=== PATIENT | male | born 1940 | race Caucasian/White ===

== ENCOUNTER → 2018-12-01 | Outpatient (REF) | payer MEDICARE, OTHER ==
[~2018-12-01] MED LIST: ASPI81TA90 PO; BISO5TAB5 PO; CENTTAB47 PO; COQ-100C PO; DILA100C PO; DIOVAN PO; FISH1000 PO; KEPP500T4 PO; PHEN100VL IV; PICC LINE FLUSHES IV; SALI0.9I2 IV; SPIR25TA2 PO; TYLE325T5 PO; VANC1ADVIV INJ; VITA200016 PO
== END ==
LOC: M SFHCADAM 15:04
PROVIDERS: ATTEND Family Medicine
DX: R41.3 Other amnesia (principal); I10 Essential (primary) hypertension; E78.2 Mixed hyperlipidemia; Z53.8 Procedure and treatment not carried out for other reasons

== ENCOUNTER → 2018-12-22 | Outpatient (REF) | payer MEDICARE, OTHER ==
[2018-12-22 19:33] LABS: HEMATOCRIT 48.3 % (42.0-52.0); HEMOGLOBIN 15.4 g/dl (13.5-17.5); MEAN CORPUSCULAR HEMOGLOBIN 28.8 pg (27.0-33.0); MEAN CORPUSCULAR HGB CONC 31.9 g/dl (32.0-36.5); MEAN CORPUSCULAR VOLUME 90.3 fl (80.0-96.0); PLATELET COUNT, AUTOMATED 180 10^3/uL (150-450); RED BLOOD COUNT 5.35 10^6/uL (4.30-6.10); WHITE BLOOD COUNT 6.3 10^3/uL (4.0-10.0)
[2018-12-22 20:15] LABS: ALBUMIN 3.7 GM/DL (3.2-5.2); ALT/SGPT 28 U/L (12-78); BILIRUBIN,TOTAL 1.9 MG/DL (0.2-1.0); BLOOD UREA NITROGEN 16 MG/DL (7-18); CALCIUM LEVEL 8.7 MG/DL (8.8-10.2); CARBON DIOXIDE LEVEL 32 MEQ/L (21-32); CHLORIDE LEVEL 103 MEQ/L (98-107); CHOLESTEROL LEVEL 218 MG/DL (<200); CHOLESTEROL RISK RATIO 3.758 (<5); CREATININE FOR GFR 0.89 MG/DL (0.70-1.30); FREE T4 0.94 NG/DL (0.76-1.46); GLOMERULAR FILTRATION RATE > 60.0 (>42); GLUCOSE, FASTING 138 MG/DL (70-100); HDL CHOLESTEROL 58 MG/DL (>40); LDL CHOLESTEROL 85 MG/DL (<100); NON-HDL-C 160 MG/DL; POTASSIUM SERUM 4.1 MEQ/L (3.5-5.1); SODIUM LEVEL 142 MEQ/L (136-145); TOTAL PROTEIN 6.7 GM/DL (6.4-8.2); TRIGLYCERIDES LEVEL 374 MG/DL (<150)
[2018-12-22 20:22] LABS: HEMOGLOBIN A1c 5.8 %
[2018-12-23 09:02] LABS: VITAMIN B12 LEVEL 497 PG/ML (247-911)
== END ==
LOC: M SFHCADAM 14:58
PROVIDERS: ATTEND Family Medicine
DX: R41.3 Other amnesia (principal); I10 Essential (primary) hypertension; E78.2 Mixed hyperlipidemia

== ENCOUNTER 2019-01-04 13:54 | Outpatient (RCR) | payer MEDICARE, BC, OTHER | END 2019-01-24 | LOC: M PT 13:54 | PROVIDERS: ATTEND Family Medicine | DX: R26.89 Other abnormalities of gait and mobility (principal) ==

== ENCOUNTER 2019-05-06 10:53 | Day surgery (SDC) | payer MEDICARE, BC, OTHER ==
[~2019-05-06] VITALS: Ht 170.2 cm; Wt 97.7 kg
[~2019-05-06 10:53] MED LIST changes: +ASPI81TA26 PO; +BALANCED SALT IRRIGATION SOLUTION 500ML BAG (FOR OR EYE MACHINE) As Ordered ONE; +BISO5TAB5; +CEFUROXIME 1MG/0.1ML INTRACAMERAL INJ As Ordered ONE; +DUOVISC (0.50ML VISCOAT/0.55ML PROVISC) OPHTH KIT As Ordered ONE; +KEPP1TAB PO; +LIDOCAINE 0.75%/EPINEPHRINE 0.025% IN BSS 1ML SYR INTRACAMERAL (OR ONLY) As Ordered ONE; +MIDAZOLAM INJ 2 MG/2 ML VIAL (J2250) As Ordered ONE; +MULTCAP PO; +OFLOXACIN 0.3 % (OCUFLOX) OPTH SOL 5ML OD ONE; +PHENYLEPHRINE 2.5% OPHTH SOL 2ML OD ONE; +POVIDONE-IODINE 5% OPHTH PREP SOL 30ML As Ordered ONE; +PROPARACAINE 0.5% OPHTH SOL 15ML OD ONE; +SPIR-10 PO; +TROPICAMIDE 1% OPHTH SOLN 2ML OD ONE; +fentaNYL 100 MCG/2 ML INJECTION (J3010) As Ordered ONE
[2019-05-06] MEDS ORDERED: METOPROLOL 5 MG/5 ML VIAL As Ordered ONE (13:11)
[2019-05-06 14:20] VITALS: BP 155/85
--- NOTE | 2019-05-07 20:30 | RO ---
DATE OF PROCEDURE: 05/06/2019 PREOPERATIVE DIAGNOSIS: 1. Visually significant nuclear sclerotic cataract right eye. POSTOPERATIVE DIAGNOSIS: 1. Visually significant nuclear sclerotic cataract right eye. PROCEDURE: 1. Cataract extraction with use of phacoemulsification and placement of intraocular lens, [id number], 20.0 D, right eye. SURGEON: Nicolas Hill DO AUTOMOBILE LIGHTS ASSEMBLER: None. ANESTHESIA: Local with monitored anesthesia care (MAC). COMPLICATIONS: None. POSTOPERATIVE CONDITION: Stable. INDICATIONS FOR SURGERY: 1. Blurred vision affecting patients activities of daily living. DESCRIPTION OF PROCEDURE: The patient was seen in the preoperative area and properly identified. The correct operative eye was identified and marked. The patient received topical anesthetic, antibiotics, and topical dilating drops. The patient was then transferred to the operating room. The correct side was re-identified, and a time-out was performed. The eye was prepped and draped in a sterile fashion. The eyelids were isolated with Tegaderm tape, and the lids were held open with an adjustable speculum. A 1.0 mm paracentesis incision was made. Intraocular preservative-free Shugarcaine was then injected into the anterior chamber. Viscoelastic was then injected into the anterior chamber through the paracentesis. Using a 2.4 mm sharp-tipped keratome, the anterior chamber was entered via a temporal clear cornea incision. A continuous curvilinear capsulorrhexis was created with Utrata forceps. Hydrodissection was performed with balanced salt solution (BSS) on a blunt cannula until the nucleus was able to rotate freely. The crystalline lens was phacoemulsified and aspirated. Irrigation/aspiration was used to remove the cortical material. Cohesive viscoelastic was placed into the capsular bag to deepen it. The implant was placed into the capsular bag and allowed to unfold. Placement was confirmed by visualizing the anterior capsulorrhexis. Irrigation/aspiration was used to remove the viscoelastic. The clear corneal incision was hydrated with BSS on a blunt cannula. The lens was well positioned. The incisions were then tested for leaks and found to be negative. The eye was then palpated for appropriate pressure and adjusted accordingly with BSS. The eyelid speculum was then carefully removed. A shield was placed over the eye. The patient tolerated the procedure well and was discharged to the recovery unit in a stable condition.
== END 2019-05-06 14:30 | disposition home or self-care (01) ==
LOC: M SDC 10:53
PROVIDERS: ATTEND Ophthalmology
DX: H25.11 Age-related nuclear cataract, right eye (principal); I10 Essential (primary) hypertension; F32.9 Major depressive disorder, single episode, unspecified; Z85.46 Personal history of malignant neoplasm of prostate; Z79.82 Long term (current) use of aspirin; Z79.899 Other long term (current) drug therapy
CPT/HCPCS: 66984; J2250; J3010; V2632

== ENCOUNTER → 2019-07-05 | Outpatient (REF) | payer MEDICARE, OTHER ==
[~2019-07-05] MED LIST changes: -BALANCED SALT IRRIGATION SOLUTION 500ML BAG (FOR OR EYE MACHINE) As Ordered ONE; -BISO5TAB5; +BISO5TAB9; -CEFUROXIME 1MG/0.1ML INTRACAMERAL INJ As Ordered ONE; -DUOVISC (0.50ML VISCOAT/0.55ML PROVISC) OPHTH KIT As Ordered ONE; -LIDOCAINE 0.75%/EPINEPHRINE 0.025% IN BSS 1ML SYR INTRACAMERAL (OR ONLY) As Ordered ONE; -MIDAZOLAM INJ 2 MG/2 ML VIAL (J2250) As Ordered ONE; -OFLOXACIN 0.3 % (OCUFLOX) OPTH SOL 5ML OD ONE; -PHENYLEPHRINE 2.5% OPHTH SOL 2ML OD ONE; -POVIDONE-IODINE 5% OPHTH PREP SOL 30ML As Ordered ONE; -PROPARACAINE 0.5% OPHTH SOL 15ML OD ONE; -TROPICAMIDE 1% OPHTH SOLN 2ML OD ONE; -fentaNYL 100 MCG/2 ML INJECTION (J3010) As Ordered ONE
[2019-07-05 14:23] LABS: ALBUMIN 3.8 GM/DL (3.2-5.2); ALT/SGPT 34 U/L (12-78); BILIRUBIN,TOTAL 1.4 MG/DL (0.2-1.0); BLOOD UREA NITROGEN 18 MG/DL (7-18); CALCIUM LEVEL 9.6 MG/DL (8.8-10.2); CARBON DIOXIDE LEVEL 32 MEQ/L (21-32); CHLORIDE LEVEL 101 MEQ/L (98-107); CREATININE FOR GFR 1.08 MG/DL (0.70-1.30); GLOMERULAR FILTRATION RATE > 60.0 (>42); GLUCOSE, FASTING 165 MG/DL (70-100); MAGNESIUM LEVEL 2.2 MG/DL (1.8-2.4); POTASSIUM SERUM 3.8 MEQ/L (3.5-5.1); SODIUM LEVEL 142 MEQ/L (136-145); TOTAL PROTEIN 7.3 GM/DL (6.4-8.2)
== END ==
LOC: M SFHCADAM 11:04
PROVIDERS: ATTEND Family Medicine
DX: I87.2 Venous insufficiency (chronic) (peripheral) (principal)

== ENCOUNTER 2019-10-30 11:33 | Emergency (ER) | payer MEDICARE, BC, OTHER ==
[~2019-10-30] VITALS: Ht 170.2 cm; Wt 92.7 kg
[2019-10-30] MEDS ORDERED: OMEP-221 (11:46)
[2019-10-30] MEDS ORDERED: FURO40TA2 (11:46)
--- NOTE | 2019-10-30 12:33 | REP ---
CHEST X-RAY: Two views. HISTORY: Cough. History of pneumonia. COMPARISON STUDY: July 21, 2014. FINDINGS: The lungs are exposed at a poor level of inspiration. There is bibasilar plate-like atelectasis, right greater than left. Pleural angles are sharp. No definite superimposed infiltrate. Heart is not enlarged. Aorta is somewhat calcific. IMPRESSION: Low level of inspiration. Bibasilar plate-like atelectasis. No definite infiltrate. Electronically Signed by Anthony Vázquez MD 10/30/2019 01:30 P
[2019-10-30] MEDS ORDERED: DOXY100C37 PO (13:03)
[2019-10-30] MEDS ORDERED: MUCI600T31 PO (13:03)
[2019-10-30 13:10] VITALS: BP 150/76
--- NOTE | 2019-10-30 13:52 | REP ---
CT CHEST WITHOUT CONTRAST: HISTORY: Question left lower lobe pneumonia. Comparison is made with today's chest x-ray. CT FINDINGS: There are atelectatic changes in the left lower lobe, lingula, and right middle lobe as seen on the radiographs. No definite infiltrate is seen. No endobronchial disease is seen. Lungs are somewhat under aerated. The left hemidiaphragm is elevated. No pulmonary nodule or mass lesion is seen. No hilar or mediastinal mass or adenopathy is observed. Vascular calcification is seen. Normal adrenal glands are noted. There is calcific material in the gallbladder lumen consistent with cholelithiasis. Fatty infiltration of the liver is seen diffusely. IMPRESSION: Elevated left hemidiaphragm and low level of inspiration overall. Left lower lobe, lingular, and right middle lobe discoid atelectatic changes. No definite infiltrate. Fatty infiltration of the liver. Cholelithiasis. Electronically Signed by Anthony Vázquez MD 10/30/2019 04:10 P
== END 2019-10-30 13:15 | disposition home or self-care (01) ==
LOC: M ED 11:33
DX: J20.9 Acute bronchitis, unspecified (principal); I10 Essential (primary) hypertension; E87.5 Hyperkalemia; R51 Headache; R60.9 Edema, unspecified; Z87.01 Personal history of pneumonia (recurrent); Z85.46 Personal history of malignant neoplasm of prostate; Z87.891 Personal history of nicotine dependence; K80.20 Calculus of gallbladder without cholecystitis without obstruction; K76.0 Fatty (change of) liver, not elsewhere classified; Z79.82 Long term (current) use of aspirin; Z79.899 Other long term (current) drug therapy

== ENCOUNTER 2019-12-18 09:18 | Inpatient (IN) | payer MEDICARE, BC, OTHER ==
[~2019-12-18] VITALS: Ht 172.7 cm; Wt 98.3 kg
[~2019-12-18 09:18] MED LIST changes: +BISO5TAB14 PO; -BISO5TAB9; +DOXY100C37 PO; +FURO40TA2 PO; +MUCI600T31 PO; +OMEP-221 PO
[2019-12-18] MEDS ORDERED: IPRATROPIUM 0.5MG/ALBUTEROL 2.5MG INH SOL UD 3ML (DUONEB)(J7620) NEB ONE (09:45)
[2019-12-18] MEDS ORDERED: ACETAMINOPHEN TAB 650MG DOSE (2X325MG) PO ONE (09:45)
[2019-12-18] MEDS: ALBUTEROL SULFATE 2.5 MG/0.5 ML INH NEB SOLN INH PRN ×2 (09:58→10:18)
[2019-12-18 10:29] LABS: BASO % 0.3 % (0.0-1.0); EOS # 0.1 10^3/uL (0.0-0.5); EOS % 1.2 % (0.0-3.0); HEMATOCRIT 48.7 % (42.0-52.0); HEMOGLOBIN 15.5 g/dl (13.5-17.5); LYMPH # 0.5 10^3/uL (1.5-5.0); LYMPH % 7.7 % (24.0-44.0); MEAN CORPUSCULAR HEMOGLOBIN 28.4 pg (27.0-33.0); MEAN CORPUSCULAR HGB CONC 31.8 g/dl (32.0-36.5); MEAN CORPUSCULAR VOLUME 89.2 fl (80.0-96.0); MONO # 0.3 10^3/uL (0.0-0.8); MONO % 5.1 % (0.0-5.0); NEUTROPHILS # 5.6 10^3/uL (1.5-8.5); NEUTROPHILS % 85.2 % (36.0-66.0); PLATELET COUNT, AUTOMATED 158 10^3/uL (150-450); RED BLOOD COUNT 5.46 10^6/uL (4.30-6.10); WHITE BLOOD COUNT 6.5 10^3/uL (4.0-10.0)
[2019-12-18 10:42] LABS: INR 1.09; PROTHROMBIN TIME 13.8 SECONDS (11.8-14.0)
[2019-12-18 10:43] LABS: INFLUENZA A AMPLIFICATION POSITIVE (NEGATIVE); INFLUENZA B AMPLIFICATION NEGATIVE (NEGATIVE)
--- NOTE | 2019-12-18 10:43 | REP ---
Portable chest, and 10:08 a.m., single AP view with the patient sitting: Comparison is 10/30/2019. There is an incomplete inspiratory effort. This is similar to the prior study. However, the interstitium is diffusely coarsened today as an interval change. This may represent vascular engorgement or interstitial infiltrates. No pleural effusions are identified. Cardiac size is upper normal, unchanged. The yesy, mediastinum, skeletal structures are unremarkable. There is faintly visible tubing over the right side of the neck and right hemithorax, possibly a NATIONAL SALES MANAGER shunt tubing. Impression: Incomplete inspiratory effort. Interstitial coarsening compatible with vascular engorgement or interstitial infiltrates. Electronically Signed by Hayden Lees MD 12/18/2019 10:33 A
[2019-12-18 11:00] LABS: ALBUMIN 3.8 GM/DL (3.2-5.2); ALT/SGPT 41 U/L (12-78); BILIRUBIN,DIRECT 0.4 MG/DL (0.0-0.2); BILIRUBIN,TOTAL 1.7 MG/DL (0.2-1.0); BLOOD UREA NITROGEN 16 MG/DL (7-18); CALCIUM LEVEL 8.8 MG/DL (8.8-10.2); CARBON DIOXIDE LEVEL 34 MEQ/L (21-32); CHLORIDE LEVEL 102 MEQ/L (98-107); CK-MB VALUE MASS 2.5 NG/ML (<3.6); CPK CREATINE PHOSPHOKINASE 193 U/L (39-308); GLOMERULAR FILTRATION RATE > 60.0 (>35); GLUCOSE, FASTING 143 MG/DL (70-100); NT-PRO BNP 383 PG/ML (<450); SODIUM LEVEL 140 MEQ/L (136-145); THYROID STIMULATING HORMONE 0.705 uIU/ML (0.358-3.740); THYROXINE (T4) 7.6 UG/DL (4.5-12.0); TOTAL PROTEIN 7.1 GM/DL (6.4-8.2); TROPONIN I 0.06 NG/ML (< 0.10)
[2019-12-18] MEDS ORDERED: cefTRIAXone SOD 2 GM in D5W MINI-BAG PLUS 50 ML IV ONE (11:15)
[2019-12-18] MEDS ORDERED: methylPREDNISolone INJ 125 MG/2 ML VIAL (J2930) IV ONE (11:15)
[2019-12-18] MEDS ORDERED: IBUPROFEN 800 MG TAB PO ONE (11:15)
[2019-12-18] MEDS ORDERED: OSELTAMIVIR PHOSPHATE 75 MG CAP (TAMIFLU) PO ONE (12:00)
[2019-12-18] MEDS ORDERED: EQLTAB77 PO (12:24)
--- NOTE | 2019-12-18 12:37 | HPEPDOC ---
General Date of Admission Dec 18, 2019 at 12:08 Date of Service: Dec 18, 2019 Chief Complaint The patient is a 79-year-old male admitted with a reason for visit of Bronchitis Hypoxia Influenza A. Source: Patient, Family Exam Limitations: No limitations Timing/Duration: 24 hours Severity: Moderate Associated Symptoms: Cough, Fever, Chills History of Present Illness Patient 79 years old male with past history of hypertension, hyperlipidemia, normal pressure hydrocephalus follows with shunt presented hospital with fever, chills, cough. Patient stated for past 24 hours he developed fever, chills increased cough with yellowish sputum production. Also patient developed muscle ache and weakness. In emergency room patient was tested positive for influenza A. His oxygenation on the room air was 87%, he was placed on the supplemental oxygen via nasal cannula. Patient was found to have no leukocytosis, chest x-ray showed interstitial coarsening compatible with vascular engorgement or interstitial infiltrates. Home Medications Scheduled Bisoprolol Fumarate (Bisoprolol Fumarate) 5 Mg Tablet, 5 MG PO DAILY, (Reported) Furosemide (Furosemide) 40 Mg Tablet, 40 MG PO DAILY, (Reported) Multivitamin (Multivitamins) 1 Each Capsule, 1 CAP PO DAILY, (Reported) Omeprazole (Omeprazole) 40 Mg Capsule.dr, 40 MG PO DAILY, (Reported) Spironolactone (Spironolactone) 25 Mg Tablet, 25 MG PO DAILY, (Reported) Scheduled PRN D-Methorphan/PE/Acetaminophen (Cold Multi-Symptom Gelcap) 1 Each Tablet, 2 TAB PO QHS PRN for flu symptoms, (Reported) Allergies Coded Allergies: No Known Allergies (Verified , 05/06/19) Past Medical History Medical History HYPERTENSION HYPERLIPIDEMIA - DID NOT TOLERATE LIPITOR IMPAIRED FASTING GLUCOSE NPH S/P SHUNT IN [place]. HAD SHNT VALVE RESET AFTER MRI SCAN WAS DONE, READJUSTED DR LLOYD. SAW Margaret BLAKE IN [facility], HAD CT BRAIN AND SHUNT SERIES 06/10, VALLVE SET AT EITHER 1.5 OR 2.0 (NOW FOLLOWS WITH DR. 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 RODGERS 08/2006 NO PERSONAL OR FHX OF SEVERE REACTION TO ANESTHESIA PROSTATE CANCER S/P ROBOTIC PROSTATECTOMY 2005 LEFT KNEE ARTHROSCOPIC SURGERY SENIOR SOFTWARE ENGINEER ANALYTICS SHUNT FOR SUNDURAL HYGROMAS Family History FATHER: MOTHER: , DIAGNOSED WITH HEART DISEASE 1 BROTHER(S) , 2 SISTER(S) - HEALTHY. 3 SON(S) , 2 DAUGHTER(S) - HEALTHY. FATHER CIRRHOSIS OF LIVER. Social History * Smoker: former Smoker Alcohol: Denies Drugs: denies A-FIB/CHADSVASC A-FIB History Current/History of A-Fib/PAF?: No Current PO Anticoag Therapy: No Review of Systems Constitutional: Reports: Chills, Fever, Malaise Eyes: Denies: Pain, Vision change ENT: Denies: Head Aches, Ear Pain Skin: Denies: Rash Pulmonary: Reports: Dyspnea, Cough Cardiovascular: Denies: Chest Pain, Palpitations Gastrointestinal: Denies: Nausea, Vomiting Genitourinary: Denies: Dysuria, Frequency Hematologic: Denies: Bruising, Bleeding Excessively Endocrine: Denies: Polydipsia, Polyphagia Musculoskeletal: Denies: Neck Pain Neurological: Denies: Weakness, Numbness Psych: Reports: Mood Normal Physical Examination General Exam: Positive: Alert, Cooperative Eye Exam: Positive: PERRLA ENT Exam: Positive: Atraumatic, Mucous membr. moist/pink Neck Exam: Positive: Supple; Negative: JVD Chest Exam: Positive: Rales, Wheezing, Diminished Heart Exam: Positive: Rate Normal Telemetry: Positive: No significant arrhythmia Abdomen Exam: Positive: Normal bowel sounds Extremity Exam: Negative: Clubbing, Cyanosis Skin Exam: Positive: Nl turgor and temperature Neuro Exam: Positive: Strength at 5/5 X4 ext, Cranial Nerves 3-12 NL Psych Exam: Positive: Mental status NL Vital Signs Vital Signs Date Time Temp Pulse Resp B/P (MAP) Pulse Ox O2 Delivery O2 Flow Rate FiO2 12/18/19 11:15 92 24 145/65 (91) 95 Nasal Cannula 2.0 12/18/19 10:12 101.2 Laboratory Data Labs 24H Laboratory Tests 2 12/18/19 10:04: Immature Granulocyte % (Auto) 0.5, Neutrophils (%) (Auto) 85.2H, Lymphocytes (%) (Auto) 7.7L, Monocytes (%) (Auto) 5.1H, Eosinophils (%) (Auto) 1.2, Basophils (%) (Auto) 0.3, Neutrophils # (Auto) 5.6, Lymphocytes # (Auto) 0.5L, Monocytes # (Auto) 0.3, Eosinophils # (Auto) 0.1, Basophils # (Auto) 0.0, Nucleated Red Blood Cells % (auto) 0.0, Prothrombin Time 13.8, Prothromb Time International Ratio 1.09, Anion Gap 4L, Glomerular Filtration Rate > 60.0, Lactic Acid Level 1.7, Calcium Level 8.8, Total Bilirubin 1.7H, Direct Bilirubin 0.4H, Aspartate Amino Transf (AST/SGOT) 28, Alanine Aminotransferase (ALT/SGPT) 41, Alkaline Phosphatase 90, Total Creatine Kinase 193, Creatine Kinase MB 2.5, Creatine Kinase MB Relative Index 1.30, Troponin I 0.06, EW-Ere-A-Type Natriuretic Peptide 383, Total Protein 7.1, Albumin 3.8, Albumin/Globulin Ratio 1.15, Thyroid Stimulating Hormone (TSH) 0.705, Thyroxine (T4) 7.6, Influenza Type A (RT-PCR) POSITIVEH, Influenza Type B (RT-PCR) NEGATIVE CBC/BMP Laboratory Tests 12/18/19 10:04 Microbiology Microbiology 12/18/19 Blood Culture, Received Pending 12/18/19 Blood Culture, Received Pending Assessment/Plan Patient 79 years old male with past history of hypertension, hyperlipidemia, normal pressure hydrocephalus follows with shunt presented hospital with fever, chills, cough. Patient stated for past 24 hours he developed fever, chills increased cough with yellowish sputum production. Also patient developed muscle ache and weakness. In emergency room patient was tested positive for influenza A. His oxygenation on the room air was 87%, he was placed on the supplemental oxygen via nasal cannula. Patient was found to have no leukocytosis, chest x-ray showed interstitial coarsening compatible with vascular engorgement or interstitial infiltrates. Problems (1) Acute respiratory failure Status: Acute Problem Text: Secondary to acute bronchitis due to viral infection Patient developed acute hypoxic respiratory failure with oxygen saturation 87% on the room air Inhalers, Solu-Medrol IV, oxygen (2) Influenza A Status: Acute Problem Text: Tamiflu 75 mg twice a day (3) Bronchitis Status: Acute Problem Text: Patient developed acute bronchitis secondary to upper respiratory viral infection, patient was tested positive for flu Patient developed yellowish sputum, most likely he has some bacterial coinfection. I started levofloxacin. Continue inhalers (4) Sepsis Status: Acute Problem Text: Most likely viral etiology Patient had fever 101.2 with tachypnea and tachycardia IV fluid See above (5) Elevated troponin Status: Acute Problem Text: Most likely secondary to demand ischemia due to acute hypoxemic respiratory failure When I saw patient he denied any chest pain or palpitations Continue monitor troponin EKG does not show any acute ischemic changes, showed sinus rhythm (6) Hypertension Status: Chronic Problem Text: Continue home meds Hydralazine IV when necessary with parameters Plan / VTE VTE Prophylaxis Ordered?: Yes CARIN RODRIGUEZ DO Dec 18, 2019 12:37
[2019-12-18 14:30] VITALS: BP 156/92
[2019-12-18] MEDS: NS 1,000 ML IV SCH ×2 (14:39→22:12)
[2019-12-18] MEDS: methylPREDNISolone INJ 125 MG/2 ML VIAL (J2930) IV SCH ×2 (15:12→22:12)
[2019-12-18] MEDS: OMEPRAZOLE 20 MG CAP PO SCH (15:13)
[2019-12-18] MEDS: SPIRONOLACTONE 25 MG TAB PO SCH (15:13)
[2019-12-18] MEDS: FUROSEMIDE 40 MG TAB PO SCH (15:13)
[2019-12-18] MEDS: LevoFLOXacin IV 750 MG in IV 1 EA IV SCH (15:15)
[2019-12-18] MEDS: bisoproloL fumarate 5 MG TAB PO SCH (15:15)
[2019-12-18] MEDS: IPRATROPIUM 0.5MG/ALBUTEROL 2.5MG INH SOL UD 3ML (DUONEB)(J7620) INH SCH ×2 (15:59→21:23)
[2019-12-18 16:30] VITALS: BP 180/90
[2019-12-18] MEDS ORDERED: hydrALAZINE INJ 20 MG/ML VIAL IV STA (16:36)
[2019-12-18] MEDS ORDERED: hydrALAZINE INJ 20 MG/ML VIAL IV PRN (16:45)
[2019-12-18] MEDS ORDERED: DEXTROSE 50% 50 ML SYRINGE IV PRN (16:45)
[2019-12-18] MEDS ORDERED: GLUCOSE 4 GM CHEW TABLET PO PRN (16:45)
[2019-12-18] MEDS ORDERED: GLUCAGON FOR INJ 1 MG VIAL (J1610) SC PRN (16:45)
--- NOTE | 2019-12-18 17:28 | REPVR ---
PROCEDURE INFORMATION: Exam: CT Head Without Contrast Exam date and time: 12/18/2019 5:04 PM Age: 79 years old Clinical indication: Altered mental status/memory loss; Additional info: AMS TECHNIQUE: Imaging protocol: Computed tomography of the head without contrast. Radiation optimization: All CT scans at this facility use at least one of these dose optimization techniques: automated exposure control; mA and/or kV adjustment per patient size (includes targeted exams where dose is matched to clinical indication); or iterative reconstruction. COMPARISON: CT Head without contrast 10/23/2016 5:13 PM FINDINGS: Tubes, catheters and devices: Intraventricular shunt tubing enters through a abner hole in the right posterior parietal region with the catheter tip located near the foramina of [place]. No breaks in the catheter demonstrated. Brain: Mild to moderate parenchymal volume loss. There is slight expansion of the extra-axial space over the right convexity now measuring 4 mm. A finding which may suggest a small subdural hygroma. There is no midline shift. Finding not demonstrated previously. Age related small vessel white matter disease in the subcortical, centrum semiovale and periventricular white matter. Ventricles: There is disproportionate enlargement of the ventricles relative to the cortical sulci, findings suggestive of normal pressure hydrocephalus. Ventricular size stable in comparison to the prior study. Bones/joints: Left posterior parietal abner hole demonstrated as well. Sinuses: Mild bilateral ethmoid sinusitis. Mastoid air cells: Visualized mastoid air cells are well aerated. Soft tissues: Unremarkable. Vasculature: Atherosclerotic calcifications in the right vertebral artery, basilar artery, and bilaterally in the intracranial carotid arteries. IMPRESSION: 1. There is disproportionate enlargement of the ventricles relative to the cortical sulci, findings suggestive of normal pressure hydrocephalus. Ventricular size stable in comparison to the prior study. 2. There is slight expansion of the extra-axial space over the right convexity now measuring 4 mm. A finding which may suggest a small subdural hygroma. There is no midline shift. Finding not demonstrated previously. 3. Mild to moderate parenchymal volume loss. 4. Age related white matter disease in the subcortical, centrum semiovale and periventricular regions consistent with small vessel gliosis change. Electronically signed by: Lazaro Rice On 12/18/2019 17:28:32 PM
[2019-12-18 18:00] VITALS: BP 119/60
[2019-12-18 18:04] VITALS: BP 125/75
[2019-12-18] MEDS: HumaLOG INSULIN (NovoLOG) PER UNIT SC SCH ×2 (19:01→20:57)
[2019-12-18 19:39] VITALS: BP 136/71
[2019-12-18] MEDS: HEPARIN SOD (PORCINE) 5000 UNITS/ML VIAL (J1644 PER 1000UNITS) SC SCH (22:12)
[2019-12-18] MEDS: OSELTAMIVIR PHOSPHATE 75 MG CAP (TAMIFLU) PO SCH (22:12)
[2019-12-19 04:00] VITALS: BP 160/78
[2019-12-19] MEDS: IPRATROPIUM 0.5MG/ALBUTEROL 2.5MG INH SOL UD 3ML (DUONEB)(J7620) INH SCH ×6 (04:00→20:00)
[2019-12-19] MEDS: methylPREDNISolone INJ 125 MG/2 ML VIAL (J2930) IV SCH ×3 (05:20→21:24)
[2019-12-19 05:48] LABS: HEMOGLOBIN 14.6 g/dl (13.5-17.5); MEAN CORPUSCULAR HEMOGLOBIN 28.7 pg (27.0-33.0); MEAN CORPUSCULAR HGB CONC 32.4 g/dl (32.0-36.5); MEAN CORPUSCULAR VOLUME 88.6 fl (80.0-96.0); PLATELET COUNT, AUTOMATED 165 10^3/uL (150-450); RED BLOOD COUNT 5.08 10^6/uL (4.30-6.10); WHITE BLOOD COUNT 9.2 10^3/uL (4.0-10.0)
[2019-12-19 06:08] LABS: BLOOD UREA NITROGEN 22 MG/DL (7-18); CALCIUM LEVEL 8.8 MG/DL (8.8-10.2); CARBON DIOXIDE LEVEL 31 MEQ/L (21-32); CHLORIDE LEVEL 105 MEQ/L (98-107); GLOMERULAR FILTRATION RATE > 60.0 (>35); GLUCOSE, FASTING 148 MG/DL (70-100); MAGNESIUM LEVEL 2.4 MG/DL (1.8-2.4); POTASSIUM SERUM 4.2 MEQ/L (3.5-5.1); SODIUM LEVEL 141 MEQ/L (136-145)
[2019-12-19 08:04] VITALS: BP 150/78
[2019-12-19] MEDS: HumaLOG INSULIN (NovoLOG) PER UNIT SC SCH ×4 (08:11→20:39)
[2019-12-19] MEDS: SPIRONOLACTONE 25 MG TAB PO SCH (08:51)
[2019-12-19] MEDS: FUROSEMIDE 40 MG TAB PO SCH (08:51)
[2019-12-19] MEDS: HEPARIN SOD (PORCINE) 5000 UNITS/ML VIAL (J1644 PER 1000UNITS) SC SCH ×2 (08:52→20:39)
[2019-12-19] MEDS: bisoproloL fumarate 5 MG TAB PO SCH (08:52)
[2019-12-19] MEDS: OMEPRAZOLE 20 MG CAP PO SCH (08:52)
[2019-12-19] MEDS: NS 1,000 ML IV SCH ×2 (08:53→20:38)
[2019-12-19] MEDS: OSELTAMIVIR PHOSPHATE 75 MG CAP (TAMIFLU) PO SCH ×2 (08:53→20:39)
[2019-12-19 12:00] VITALS: BP 148/77
[2019-12-19] MEDS: LevoFLOXacin IV 750 MG in IV 1 EA IV SCH (13:28)
--- NOTE | 2019-12-19 14:07 | IPNPDOC ---
Subjective Date Seen The patient was seen on 12/19/19. Subjective Chief Complaint/HPI some dizziness today otherwise no complaint. looks comfortable sitting with RA, sats adequate Constitutional: Denies: Chills ENT: Denies: Head Aches Skin: Reports: Other (chronic changes over lower legs) Pulmonary: Reports: Cough; Denies: Dyspnea Cardiovascular: Denies: Chest Pain, Palpitations Gastrointestinal: Denies: Nausea, Abdominal Pain Hematologic: Denies: Bruising, Petecchia Neurological: Denies: Weakness, Change in speech Psych: Reports: Mood Normal Objective Physical Examination General Exam: Positive: Alert, Cooperative Eye Exam: Positive: PERRLA ENT Exam: Positive: Atraumatic, Mucous membr. moist/pink Neck Exam: Positive: Supple; Negative: JVD Chest Exam: Positive: Wheezing (faint wheezing with diminished air flow noted throughout.), Diminished Heart Exam: Positive: Rate Normal Telemetry: Positive: No significant arrhythmia Abdomen Exam: Positive: Normal bowel sounds Extremity Exam: Positive: Normal pulses, Other; Negative: Clubbing, Cyanosis Skin Exam: Positive: Nl turgor and temperature, Lesion (violaceous discoloration bilateral shins.) Neuro Exam: Positive: Strength at 5/5 X4 ext, Cranial Nerves 3-12 NL Psych Exam: Positive: Mental status NL Assessment /Plan Problems (1) Influenza A Status: Acute Response to Treatment: Stable, Improving Problem Text: O2 sats seem better on RA this pm. receiving Tamiflu. still quite wheezy, with diminishe airflow, reflecting effect of infection with likely background of COPD. also on steroid, levaquin. (2) NPH (normal pressure hydrocephalus) Response to Treatment: Stable Problem Text: has shunt in place and follows with neurosurgeon. (3) Essential hypertension Status: Chronic Response to Treatment: Stable Problem Text: not optimal control. 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 (5) Hypertension Status: Chronic Response to Treatment: Stable Plan/VTE VTE Prophylaxis Ordered?: Yes VS, I&O, 24H, Fishbone Vital Signs/I&O Vital Signs Date Time Temp Pulse Resp B/P (MAP) Pulse Ox O2 Delivery O2 Flow Rate FiO2 12/19/19 08:52 87 150/78 12/19/19 08:04 97.8 20 92 Room Air 12/19/19 04:00 1.0 I&O- Last 24 Hours up to 6 AM 12/19/19 06:00 Intake Total 1260 ml Output Total 250 ml Balance 1010 ml Laboratory Data 24H LABS Laboratory Tests 2 12/18/19 16:12: Bedside Glucose (Misc Panel) 265H, Troponin I 0.05 12/18/19 17:31: Bedside Glucose (Misc Panel) 240H 12/18/19 20:52: Bedside Glucose (Misc Panel) 202H 12/19/19 05:29: Nucleated Red Blood Cells % (auto) 0.0, Anion Gap 5L, Glomerular Filtration Rate > 60.0, Calcium Level 8.8, Magnesium Level 2.4 12/19/19 11:30: Bedside Glucose (Misc Panel) 177H CBC/BMP Laboratory Tests 12/19/19 05:29 Microbiology Microbiology 12/18/19 Blood Culture - Preliminary, Resulted No growth after 24 hours . All specim... 12/18/19 Blood Culture - Preliminary, Resulted No growth after 24 hours . All specim... Escobar London MD Dec 19, 2019 14:07
[2019-12-19 16:00] VITALS: BP 175/97
[2019-12-19 20:00] VITALS: BP 186/86
--- NOTE | 2019-12-19 20:45 | ECGEPIP ---
[facility] - ED Test Date: 2019-12-18 Pat Name: JEFF ARANDA Department: Room: - Gender: Male Orthopedic Physical Therapist: : [id number] Requested By: SNEHA GROVE PA-C Order Number: [id number] Reading MD: Elizabeth Lee Measurements Intervals [place] Rate: 88 P: 25 IA: 163 QRS: -1 QRSD: 97 T: 113 QT: 347 QTc: 421 Interpretive Statements SINUS RHYTHM ST DEVIATION AND MODERATE T-WAVE ABNORMALITY, CONSIDER ISCHEMIA NO PRIOR Electronically Signed on 12-19-2019 20:45:20 EST by Elizabeth Lee
[2019-12-20] VITALS: BP 148/88
[2019-12-20 04:00] VITALS: BP 167/82
[2019-12-20] MEDS: NS 1,000 ML IV SCH (05:00)
[2019-12-20] MEDS: methylPREDNISolone INJ 125 MG/2 ML VIAL (J2930) IV SCH ×2 (06:25→20:47)
[2019-12-20] MEDS: HumaLOG INSULIN (NovoLOG) PER UNIT SC SCH ×4 (07:30→20:51)
[2019-12-20 08:00] VITALS: BP 135/90
[2019-12-20] MEDS: IPRATROPIUM 0.5MG/ALBUTEROL 2.5MG INH SOL UD 3ML (DUONEB)(J7620) INH SCH ×5 (08:00→20:57)
[2019-12-20] MEDS: OSELTAMIVIR PHOSPHATE 75 MG CAP (TAMIFLU) PO SCH ×2 (08:48→20:47)
[2019-12-20] MEDS: FUROSEMIDE 40 MG TAB PO SCH (08:48)
[2019-12-20] MEDS: OMEPRAZOLE 20 MG CAP PO SCH (08:48)
[2019-12-20] MEDS: SPIRONOLACTONE 25 MG TAB PO SCH (08:49)
[2019-12-20] MEDS: bisoproloL fumarate 5 MG TAB PO SCH (08:49)
[2019-12-20] MEDS: HEPARIN SOD (PORCINE) 5000 UNITS/ML VIAL (J1644 PER 1000UNITS) SC SCH ×2 (08:49→20:47)
--- NOTE | 2019-12-20 09:56 | IPNPDOC ---
Subjective Date Seen The patient was seen on 12/20/19. Subjective Chief Complaint/HPI Pt this morning states that he is feeling better. He has no new concerns. General: Denies: Fatigue Constitutional: Denies: Chills, Fever ENT: Denies: Head Aches Pulmonary: Denies: Dyspnea, Cough Cardiovascular: Denies: Chest Pain Gastrointestinal: Denies: Nausea, Vomiting Neurological: Denies: Weakness Psych: Reports: Mood Normal, Memory Issues Objective Physical Examination General Exam: Positive: Alert, Cooperative ENT Exam: Positive: Mucous membr. moist/pink Neck Exam: Positive: Supple; Negative: JVD Chest Exam: Positive: Clear to auscultation, Diminished Heart Exam: Positive: Rate Normal Telemetry: Positive: No significant arrhythmia Abdomen Exam: Positive: Normal bowel sounds, Soft; Negative: Tenderness Extremity Exam: Positive: Normal pulses, Other; Negative: Clubbing, Cyanosis Skin Exam: Positive: Nl turgor and temperature, Lesion (violaceous discoloration bilateral shins.) Assessment /Plan Problems (1) Influenza A Status: Acute Response to Treatment: Stable, Improving Problem Text: 12/20 sats stable, Tamiflu D3, resp status stable. Will decreased SM dose this morning. 12/19 O2 sats seem better on RA this pm. receiving Tamiflu. still quite wheezy, with diminishe airflow, reflecting effect of infection with likely background of COPD. also on steroid, levaquin. (2) NPH (normal pressure hydrocephalus) Response to Treatment: Stable Problem Text: has shunt in place and follows with neurosurgeon. (3) Essential hypertension Status: Chronic Response to Treatment: Stable Problem Text: Pressures elevated, monitor, likely related to SM dose. 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 (5) Hypertension Status: Chronic Response to Treatment: Stable Plan/VTE VTE Prophylaxis Ordered?: Yes VS, I&O, 24H, Fishbone Vital Signs/I&O Vital Signs Date Time Temp Pulse Resp B/P (MAP) Pulse Ox O2 Delivery O2 Flow Rate FiO2 12/20/19 08:49 74 135/90 12/20/19 08:00 97.7 17 90 Room Air 12/19/19 04:00 1.0 I&O- Last 24 Hours up to 6 AM 12/20/19 06:00 Intake Total 780 ml Output Total 0 ml Balance 780 ml Laboratory Data 24H LABS Laboratory Tests 2 12/19/19 11:30: Bedside Glucose (Misc Panel) 177H 12/19/19 17:13: Bedside Glucose (Misc Panel) 145H 12/19/19 20:37: Bedside Glucose (Misc Panel) 159H Microbiology Microbiology 12/18/19 Blood Culture - Preliminary, Resulted No growth after 24 hours . All specim... 12/18/19 Blood Culture - Preliminary, Resulted No growth after 24 hours . All specim... CLAUDIA BOX PA-C Dec 20, 2019 09:56
[2019-12-20 14:00] VITALS: BP 127/91
[2019-12-20] MEDS ORDERED: LEVALBUTEROL 1.25 MG/0.5 ML CONCENTRATE NEB INH PRN (17:15)
[2019-12-20 20:00] VITALS: BP 160/82
[2019-12-21] VITALS: BP 170/95
[2019-12-21] MEDS: IPRATROPIUM 0.5MG/ALBUTEROL 2.5MG INH SOL UD 3ML (DUONEB)(J7620) INH SCH ×7 (01:20→21:16)
[2019-12-21 04:00] VITALS: BP 140/82
[2019-12-21 05:30] LABS: BASO % 0.1 % (0.0-1.0); EOS # 0.1 10^3/uL (0.0-0.5); HEMATOCRIT 43.6 % (42.0-52.0); LYMPH # 0.5 10^3/uL (1.5-5.0); LYMPH % 5.8 % (24.0-44.0); MEAN CORPUSCULAR HEMOGLOBIN 28.7 pg (27.0-33.0); MEAN CORPUSCULAR HGB CONC 32.1 g/dl (32.0-36.5); MEAN CORPUSCULAR VOLUME 89.5 fl (80.0-96.0); MONO # 0.3 10^3/uL (0.0-0.8); MONO % 3.3 % (0.0-5.0); NEUTROPHILS # 7.3 10^3/uL (1.5-8.5); NEUTROPHILS % 89.2 % (36.0-66.0); PLATELET COUNT, AUTOMATED 171 10^3/uL (150-450); RED BLOOD COUNT 4.87 10^6/uL (4.30-6.10); WHITE BLOOD COUNT 8.2 10^3/uL (4.0-10.0)
[2019-12-21 06:01] LABS: ALBUMIN 3.2 GM/DL (3.2-5.2); ALT/SGPT 50 U/L (12-78); BILIRUBIN,TOTAL 0.6 MG/DL (0.2-1.0); BLOOD UREA NITROGEN 25 MG/DL (7-18); CALCIUM LEVEL 8.4 MG/DL (8.8-10.2); CARBON DIOXIDE LEVEL 31 MEQ/L (21-32); CHLORIDE LEVEL 105 MEQ/L (98-107); CREATININE FOR GFR 0.91 MG/DL (0.70-1.30); GLOMERULAR FILTRATION RATE > 60.0 (>35); GLUCOSE, FASTING 156 MG/DL (70-100); POTASSIUM SERUM 3.6 MEQ/L (3.5-5.1); SODIUM LEVEL 142 MEQ/L (136-145); TOTAL PROTEIN 6.8 GM/DL (6.4-8.2); TROPONIN I 0.03 NG/ML (< 0.10)
[2019-12-21 07:34] VITALS: BP 180/90
[2019-12-21] MEDS: HEPARIN SOD (PORCINE) 5000 UNITS/ML VIAL (J1644 PER 1000UNITS) SC SCH ×2 (08:51→20:24)
[2019-12-21] MEDS: HumaLOG INSULIN (NovoLOG) PER UNIT SC SCH ×4 (08:51→20:23)
[2019-12-21] MEDS: bisoproloL fumarate 5 MG TAB PO SCH (08:52)
[2019-12-21] MEDS: OSELTAMIVIR PHOSPHATE 75 MG CAP (TAMIFLU) PO SCH ×2 (08:52→20:24)
[2019-12-21] MEDS: OMEPRAZOLE 20 MG CAP PO SCH (08:52)
[2019-12-21] MEDS: FUROSEMIDE 40 MG TAB PO SCH (08:53)
[2019-12-21] MEDS: methylPREDNISolone INJ 125 MG/2 ML VIAL (J2930) IV SCH ×2 (08:53→20:24)
[2019-12-21] MEDS: SPIRONOLACTONE 25 MG TAB PO SCH (09:00)
--- NOTE | 2019-12-21 10:27 | IPNPDOC ---
Subjective Date Seen The patient was seen on 12/21/19. Subjective Chief Complaint/HPI Nurse reports intermittent episodes of confusion. A little more wheezy overnight and this am - Oxygen restarted overnight for comfort, but sats stable. Constitutional: Denies: Chills, Fever Skin: Denies: Rash, Lesions Pulmonary: Reports: Dyspnea, Cough Cardiovascular: Denies: Chest Pain, Palpitations Gastrointestinal: Denies: Nausea, Vomiting, Abdominal Pain, Diarrhea, Constipation Objective Physical Examination General Exam: Positive: Alert, Cooperative, No Acute Distress Chest Exam: Positive: Wheezing (Scattered end exp wheezes BL), Diminished Heart Exam: Positive: Rate Normal, Regular Rhythm Abdomen Exam: Positive: Normal bowel sounds, Soft; Negative: Tenderness Extremity Exam: Positive: Edema (1 - 2+ edema BL LE), Other (chronic venous stasis changes BL); Negative: Cyanosis Skin Exam: Positive: Nl turgor and temperature, Lesion (violaceous discoloration bilateral shins.) Psych Exam: Positive: Mental status NL, Mood NL Assessment /Plan Problems (1) Influenza A Status: Acute Response to Treatment: Stable, Improving Problem Text: 12/21 - sats stable, Tamiflu D4, resp status stable. Solumedrol dose decreased yesterday - a little wheezy this am, but sats remain stable - wean oxygen and observe one more day 12/19 O2 sats seem better on RA this pm. receiving Tamiflu. still quite wheezy, with diminishe airflow, reflecting effect of infection with likely background of COPD. also on steroid, levaquin. (2) NPH (normal pressure hydrocephalus) Response to Treatment: Stable Problem Text: has shunt in place and follows with neurosurgeon. (3) Essential hypertension Status: Chronic Response to Treatment: Stable Problem Text: 12/21 - BP remains elevated - likely secondary to Solumedrol/agitation-+ almo 5 (dc hydral IV) No h/o CHF in past - I will give extra dose of Lasix today. 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 Plan/VTE VTE Prophylaxis Ordered?: Yes (SQ heparin) VS, I&O, 24H, Fishbone Vital Signs/I&O Vital Signs Date Time Temp Pulse Resp B/P (MAP) Pulse Ox O2 Delivery O2 Flow Rate FiO2 12/21/19 08:52 180/90 12/21/19 07:34 97.6 82 20 95 Room Air 12/19/19 04:00 1.0 I&O- Last 24 Hours up to 6 AM 12/21/19 06:00 Intake Total 420 ml Output Total 1 ml Balance 419 ml Laboratory Data 24H LABS Laboratory Tests 2 12/20/19 12:22: Bedside Glucose (Misc Panel) 147H 12/20/19 17:44: Bedside Glucose (Misc Panel) 171H 12/20/19 20:50: Bedside Glucose (Misc Panel) 212H 12/21/19 04:55: Immature Granulocyte % (Auto) 0.6, Neutrophils (%) (Auto) 89.2H, Lymphocytes (%) (Auto) 5.8L, Monocytes (%) (Auto) 3.3, Eosinophils (%) (Auto) 1.0, Basophils (%) (Auto) 0.1, Neutrophils # (Auto) 7.3, Lymphocytes # (Auto) 0.5L, Monocytes # (Auto) 0.3, Eosinophils # (Auto) 0.1, Basophils # (Auto) 0.0, Nucleated Red Blood Cells % (auto) 0.0, Anion Gap 6L, Glomerular Filtration Rate > 60.0, Calcium Level 8.4L, Total Bilirubin 0.6#, Aspartate Amino Transf (AST/SGOT) 52H, Alanine Aminotransferase (ALT/SGPT) 50, Alkaline Phosphatase 68, Troponin I 0.03, Total Protein 6.8, Albumin 3.2, Albumin/Globulin Ratio 0.89L CBC/BMP Laboratory Tests 12/21/19 04:55 Microbiology Microbiology 12/18/19 Blood Culture - Preliminary, Resulted No Growth after 48 hours. All Specime... 12/18/19 Blood Culture - Preliminary, Resulted No Growth after 48 hours. All Specime... DEBBY MAY PA-C Dec 21, 2019 10:27 Girish Bar M.D. Dec 21, 2019 16:48
[2019-12-21] MEDS ORDERED: POTASSIUM CHLORIDE 10 MEQ SR TABLET PO ONE (11:00)
[2019-12-21] MEDS ORDERED: FUROSEMIDE 40 MG TAB PO ONE (13:00)
[2019-12-21 16:00] VITALS: BP 178/80
[2019-12-21 17:47] LABS: NT-PRO BNP 333 PG/ML (<450)
[2019-12-21 20:00] VITALS: BP 172/74
[2019-12-22] MEDS: IPRATROPIUM 0.5MG/ALBUTEROL 2.5MG INH SOL UD 3ML (DUONEB)(J7620) INH SCH ×4 (03:19→11:15)
[2019-12-22 04:00] VITALS: BP 160/68
[2019-12-22 05:32] LABS: ALBUMIN 3.5 GM/DL (3.2-5.2); BLOOD UREA NITROGEN 22 MG/DL (7-18); CALCIUM LEVEL 8.8 MG/DL (8.8-10.2); CARBON DIOXIDE LEVEL 34 MEQ/L (21-32); CHLORIDE LEVEL 100 MEQ/L (98-107); CREATININE FOR GFR 0.95 MG/DL (0.70-1.30); GLOMERULAR FILTRATION RATE > 60.0 (>35); GLUCOSE, FASTING 168 MG/DL (70-100); PHOSPHORUS LEVEL 3.4 MG/DL (2.5-4.9); POTASSIUM SERUM 3.4 MEQ/L (3.5-5.1); SODIUM LEVEL 140 MEQ/L (136-145)
[2019-12-22 08:00] VITALS: BP 149/72
[2019-12-22] MEDS: bisoproloL fumarate 5 MG TAB PO SCH (08:50)
[2019-12-22] MEDS: FUROSEMIDE 40 MG TAB PO SCH (08:51)
[2019-12-22] MEDS: SPIRONOLACTONE 25 MG TAB PO SCH (08:51)
[2019-12-22] MEDS: OMEPRAZOLE 20 MG CAP PO SCH (08:51)
[2019-12-22] MEDS: OSELTAMIVIR PHOSPHATE 75 MG CAP (TAMIFLU) PO SCH (08:51)
[2019-12-22 08:52] VITALS: BP 149/72
[2019-12-22] MEDS: HEPARIN SOD (PORCINE) 5000 UNITS/ML VIAL (J1644 PER 1000UNITS) SC SCH (08:52)
[2019-12-22] MEDS: methylPREDNISolone INJ 125 MG/2 ML VIAL (J2930) IV SCH (08:52)
[2019-12-22] MEDS: HumaLOG INSULIN (NovoLOG) PER UNIT SC SCH (08:53)
[2019-12-22] MEDS ORDERED: amLODIPine 5 MG TAB PO SCH (09:00)
[2019-12-22] MEDS ORDERED: AMLO5TAB6 PO (10:21)
[2019-12-22] MEDS ORDERED: OSEL75CA2 PO (10:21)
[2019-12-22] MEDS ORDERED: IPRA0.00 INH (10:21)
[2019-12-22] MEDS ORDERED: PRED20TA PO (10:21)
[2019-12-22] MEDS ORDERED: POTASSIUM CHLORIDE 10 MEQ SR TABLET PO ONE (11:00)
--- NOTE | 2019-12-22 18:06 | DSES ---
DATE OF ADMISSION: 12/18/2019 DATE OF DISCHARGE: 12/22/2019 BRIEF HISTORY AND PHYSICAL: The patient is an 79-year-old patient who presented to the hospital with fever, chills, cough, yellowish sputum production, muscle aches and weakness. He was in the emergency room, tested positive for influenza A. Oxygenation on room air was 87%. He was placed on supplemental oxygen. Chest x-ray showed interstitial coarsening compatible with vascular engorgement or interstitial infiltrates. PAST MEDICAL HISTORY: Significant for: 1. Hypertension. 2. Hyperlipidemia. 3. Normal pressure hydrocephalus with shunt. LABS ON ADMISSION: White count 6.5, hemoglobin 15.5, platelets 158,000. Sodium 140, potassium 4.0, BUN 16, creatinine 1, glucose 143. HOSPITAL COURSE: 1. The patient was admitted for acute respiratory failure with hypoxemia secondary to acute bronchitis from influenza A. He was placed on supplemental oxygen via nasal cannula, given inhaled bronchodilators and intravenous (IV) Solu-Medrol, Levaquin was initiated due to the presumed superimposed bacterial infection with his yellowish sputum production, as well as septic picture, with tachypnea and tachycardia. He was also given IV fluids. His blood cultures were negative and this was felt to be viral in nature and so his antibiotics were discontinued. He was given Tamiflu and has completed four out of five days of Tamiflu treatment. His respiratory status has improved. He has been ambulating a with physical therapy on room air and maintaining his saturations above 90 without significant dyspnea. His bronchospasm has improved. He will continue his nebulized bronchodilators as an outpatient and five more days of prednisone, as well as one more day of Tamiflu to complete that course. He is safe for discharge per physical therapy. 2. Hypertension. Blood pressure has been elevated, likely related to his Solu-Medrol amlodipine was added to his regimen. He also was given an extra dose of Lasix on the day prior to discharge due to some lower extremity edema likely related to the IV fluid hydration he had gotten. He has no known history of congestive heart failure (CHF) in the past. Clinically, his edema has improved. Renal function has remained stable, Potassium was a little low on the date of discharge from the extra dose of Lasix, so he will be given a dose of potassium prior to discharge and may need followup of his electrolytes as an outpatient, but he is on Aldactone typically with 40 mg of Lasix and normally maintains a normal potassium level with that. Amlodipine was added to his blood pressure regimen due to the hypertension, and this may need to be adjusted as he comes off of his steroids. 3. Normal pressure hydrocephalus at baseline. DISPOSITION: He is stable for discharge home to follow up with Dr. Larios next week. Diet: No added salt. Activity as tolerated. MEDICATIONS: - amlodipine 5 mg daily - ipratropium albuterol nebulized every 6 hours - Tamiflu 75 mg twice a day for one more day - prednisone 20 mg 2 tablets daily for five more days - bisoprolol 5 mg daily - bisoprolol 5 mg daily - furosemide 40 mg daily - multivitamin daily - omeprazole 40 mg daily - spironolactone 25 mg daily DISCHARGE DIAGNOSES: 1. Acute respiratory failure secondary to influenza A bronchitis. 2. Influenza A respiratory infection. 3. Bronchitis. 4. Essential hypertension. 5. Stasis dermatitis of the lower extremities due to peripheral venous hypertension. 6. Normal pressure hydrocephalous.
== END 2019-12-22 12:57 | disposition home or self-care (01) | DRG 193 ==
LOC: M ED 09:18 → M ED INP 12:08 → ENRESERVTM 13:26 → ENRESERVDT 13:26 → M MSPAV 14:57 → M ICU 17:54 → M PCU 23:07
PROVIDERS: ADMIT Internal Medicine; ATTEND Family Medicine
DX: J10.1 Influenza due to other identified influenza virus with other respiratory manifestations (principal); J96.01 Acute respiratory failure with hypoxia; G91.2 (Idiopathic) normal pressure hydrocephalus; J40 Bronchitis, not specified as acute or chronic; I11.0 Hypertensive heart disease with heart failure; I50.9 Heart failure, unspecified; E78.5 Hyperlipidemia, unspecified; Z87.891 Personal history of nicotine dependence; E80.4 Gilbert syndrome; E88.81 Metabolic syndrome and other insulin resistance; L80 Vitiligo; Z98.2 Presence of cerebrospinal fluid drainage device; Z85.46 Personal history of malignant neoplasm of prostate; R79.89 Other specified abnormal findings of blood chemistry; I87.2 Venous insufficiency (chronic) (peripheral); I87.322 Chronic venous hypertension (idiopathic) with inflammation of left lower extremity

== ENCOUNTER → 2019-12-31 | Outpatient (REF) | payer MEDICARE, OTHER ==
[~2019-12-31] MED LIST changes: +AMLO5TAB6 PO; +EQLTAB77 PO; +IPRA0.00 INH; +OSEL75CA2 PO; +PRED20TA PO
[2019-12-31 16:22] LABS: HEMATOCRIT 54.1 % (42.0-52.0); HEMOGLOBIN 16.5 g/dl (13.5-17.5); MEAN CORPUSCULAR HEMOGLOBIN 28.2 pg (27.0-33.0); MEAN CORPUSCULAR HGB CONC 30.5 g/dl (32.0-36.5); MEAN CORPUSCULAR VOLUME 92.5 fl (80.0-96.0); PLATELET COUNT, AUTOMATED 188 10^3/uL (150-450); RED BLOOD COUNT 5.85 10^6/uL (4.30-6.10); WHITE BLOOD COUNT 9.3 10^3/uL (4.0-10.0)
[2019-12-31 16:38] LABS: ALBUMIN 3.7 GM/DL (3.2-5.2); ALT/SGPT 65 U/L (12-78); BILIRUBIN,TOTAL 1.6 MG/DL (0.2-1.0); BLOOD UREA NITROGEN 20 MG/DL (7-18); CALCIUM LEVEL 9.1 MG/DL (8.8-10.2); CARBON DIOXIDE LEVEL 36 MEQ/L (21-32); CHLORIDE LEVEL 100 MEQ/L (98-107); CHOLESTEROL LEVEL 371 MG/DL (<200); CHOLESTEROL RISK RATIO 5.455 (<5); CREATININE FOR GFR 1.03 MG/DL (0.70-1.30); FREE T4 1.18 NG/DL (0.76-1.46); GLOMERULAR FILTRATION RATE > 60.0 (>35); GLUCOSE, FASTING 142 MG/DL (70-100); HDL CHOLESTEROL 68 MG/DL (>40); NON-HDL-C 303 MG/DL; POTASSIUM SERUM 4.2 MEQ/L (3.5-5.1); SODIUM LEVEL 142 MEQ/L (136-145); TOTAL PROTEIN 7.1 GM/DL (6.4-8.2); TRIGLYCERIDES LEVEL 651 MG/DL (<150)
[2019-12-31 16:52] LABS: HEMOGLOBIN A1c 6.4 %
== END ==
LOC: M SFHCADAM 11:20
PROVIDERS: ATTEND Physician Assistant
DX: R41.3 Other amnesia (principal); I11.9 Hypertensive heart disease without heart failure; E78.2 Mixed hyperlipidemia; R73.03 Prediabetes
CPT/HCPCS: 80053; 80061; 83036; 84439; 84443; 85027; 99495; G0463

== ENCOUNTER → 2020-03-28 | Outpatient (CLI) | payer MEDICARE, OTHER ==
--- NOTE | 2020-03-28 14:40 | REP ---
REASON: Chronic back pain. PRIORS: None. There is a slight dextroconvex curve. Vertebral body height is within normal limits. There is a minimal grade 1 L4 upon L5 spondylolisthesis. Hypertrophic degenerative facet changes are present at every level, the laterally particularly L4-5 and L5-S1. There is no evidence of spondylolysis. There is slight anterior lipping at every level. There is posterior disc space narrowing at every level which is moderate. The pedicles are intact bilaterally. Chronic changes as described above. The L4 upon L5 spondylolisthesis is likely secondary to chronic degenerative facet joint changes. There is no definite evidence of spondylolysis. Electronically Signed by Paras Perez DO 03/28/2020 03:13 P
--- NOTE | 2020-03-28 14:42 | REP ---
REASON: History of knee pain. History of arthritis. PRIORS: None. There is tricompartmental marginal osteophytosis, heaviest involving the medial compartment where there is medial compartmental narrowing and mild subchondral sclerosis. There is patellofemoral joint space narrowing. There is no acute fracture, dislocation or subluxation. IMPRESSION: Chronic changes as described above. Electronically Signed by Paras Perez DO 03/28/2020 03:13 P
== END ==
LOC: M ADAMS 11:18
PROVIDERS: ATTEND Family Medicine
DX: M17.0 Bilateral primary osteoarthritis of knee (principal); M51.26 Other intervertebral disc displacement, lumbar region
CPT/HCPCS: 72110; 73564; G0463

== ENCOUNTER → 2020-09-28 | Outpatient (REF) | payer MEDICARE, OTHER ==
[~2020-09-28] MED LIST changes: +AMLO1TAB24 PO; -AMLO5TAB6 PO
[2020-09-28 17:18] LABS: HEMATOCRIT 52.8 % (42.0-52.0); HEMOGLOBIN 16.5 g/dl (13.5-17.5); MEAN CORPUSCULAR HEMOGLOBIN 28.2 pg (27.0-33.0); MEAN CORPUSCULAR HGB CONC 31.3 g/dl (32.0-36.5); MEAN CORPUSCULAR VOLUME 90.3 fl (80.0-96.0); PLATELET COUNT, AUTOMATED 191 10^3/uL (150-450); RED BLOOD COUNT 5.85 10^6/uL (4.30-6.10); WHITE BLOOD COUNT 6.7 10^3/uL (4.0-10.0)
[2020-09-28 17:53] LABS: ALBUMIN 3.7 GM/DL (3.2-5.2); ALT/SGPT 23 U/L (12-78); BILIRUBIN,TOTAL 1.7 MG/DL (0.2-1.0); BLOOD UREA NITROGEN 13 MG/DL (7-18); CALCIUM LEVEL 9.4 MG/DL (8.8-10.2); CARBON DIOXIDE LEVEL 31 MEQ/L (21-32); CHLORIDE LEVEL 104 MEQ/L (98-107); CHOLESTEROL LEVEL 272 MG/DL (<200); CHOLESTEROL RISK RATIO 4.533 (<5); CREATININE FOR GFR 0.99 MG/DL (0.70-1.30); GLOMERULAR FILTRATION RATE > 60.0 (>35); GLUCOSE, FASTING 121 MG/DL (70-100); HDL CHOLESTEROL 60 MG/DL (>40); LDL CHOLESTEROL 163 MG/DL (<100); NON-HDL-C 212 MG/DL; POTASSIUM SERUM 4.5 MEQ/L (3.5-5.1); SODIUM LEVEL 140 MEQ/L (136-145); TOTAL PROTEIN 6.6 GM/DL (6.4-8.2); TRIGLYCERIDES LEVEL 247 MG/DL (<150)
[2020-09-28 20:46] LABS: HEMOGLOBIN A1c 6.1 %
== END ==
LOC: M SFHCADAM 13:27
PROVIDERS: ATTEND Physician Assistant
DX: I11.9 Hypertensive heart disease without heart failure (principal); I73.9 Peripheral vascular disease, unspecified; R73.03 Prediabetes; E78.2 Mixed hyperlipidemia

== ENCOUNTER → 2021-07-20 | Outpatient (REF) | payer MEDICARE, OTHER ==
[~2021-07-20] MED LIST changes: -DOXY100C37 PO; +DOXY1CAP62 PO
[2021-07-20 18:17] LABS: HEMATOCRIT 50.1 % (42.0-52.0); HEMOGLOBIN 15.9 g/dl (13.5-17.5); MEAN CORPUSCULAR HEMOGLOBIN 28.9 pg (27.0-33.0); MEAN CORPUSCULAR HGB CONC 31.7 g/dl (32.0-36.5); MEAN CORPUSCULAR VOLUME 90.9 fl (80.0-96.0); PLATELET COUNT, AUTOMATED 222 10^3/uL (150-450); RED BLOOD COUNT 5.51 10^6/uL (4.30-6.10)
[2021-07-20 18:41] LABS: ALBUMIN 3.5 GM/DL (3.2-5.2); ALT/SGPT 24 U/L (12-78); BILIRUBIN,TOTAL 1.7 MG/DL (0.2-1.0); BLOOD UREA NITROGEN 16 MG/DL (7-18); CALCIUM LEVEL 9.1 MG/DL (8.8-10.2); CARBON DIOXIDE LEVEL 33 MEQ/L (21-32); CHLORIDE LEVEL 100 MEQ/L (98-107); CREATININE FOR GFR 1.05 MG/DL (0.70-1.30); GLOMERULAR FILTRATION RATE > 60.0 (>35); GLUCOSE, FASTING 117 MG/DL (70-100); POTASSIUM SERUM 4.3 MEQ/L (3.5-5.1); SODIUM LEVEL 140 MEQ/L (136-145); TOTAL PROTEIN 6.7 GM/DL (6.4-8.2)
== END ==
LOC: M SFHCADAM 15:36
PROVIDERS: ATTEND Physician Assistant
DX: R73.03 Prediabetes (principal); I11.9 Hypertensive heart disease without heart failure

== ENCOUNTER 2022-01-12 13:11 | Inpatient (IN) | payer MEDICARE, OTHER ==
[~2022-01-12] VITALS: Ht 168.9 cm; Wt 96.7 kg
[~2022-01-12 13:11] MED LIST changes: +DOXY-443 PO; -DOXY1CAP62 PO; -OMEP-221 PO; +OMEP40CA5 PO
[2022-01-12] MEDS ORDERED: ISOVUE-370 76% 100ML VIAL As Ordered ONE (13:49)
[2022-01-12 13:57] LABS: BASO % 0.3 % (0.0-1.0); EOS # 0.1 10^3/uL (0.0-0.5); EOS % 1.4 % (0.0-3.0); HEMATOCRIT 50.3 % (42.0-52.0); HEMOGLOBIN 16.2 g/dl (13.5-17.5); LYMPH # 1.2 10^3/uL (1.5-5.0); LYMPH % 17.5 % (24.0-44.0); MEAN CORPUSCULAR HGB CONC 32.2 g/dl (32.0-36.5); MEAN CORPUSCULAR VOLUME 86.9 fl (80.0-96.0); MONO # 0.4 10^3/uL (0.0-0.8); MONO % 5.6 % (2.0-8.0); NEUTROPHILS % 74.9 % (36.0-66.0); PLATELET COUNT, AUTOMATED 175 10^3/uL (150-450); RED BLOOD COUNT 5.79 10^6/uL (4.30-6.10); WHITE BLOOD COUNT 6.6 10^3/uL (4.0-10.0)
[2022-01-12 14:10] LABS: INR 0.94
[2022-01-12 14:11] LABS: PARTIAL THROMBOPLASTIN TIME 29.5 SECONDS (25.9-37.0)
[2022-01-12 14:25] LABS: CK-MB VALUE MASS 2.6 NG/ML (<3.6); MB/CK RELATIVE INDEX 2.74 (< OR =4)
[2022-01-12 16:27] LABS: CK-MB VALUE MASS 2.5 NG/ML (<3.6); MB/CK RELATIVE INDEX 2.5 (< OR =4)
[2022-01-12 16:56] LABS: CK-MB VALUE MASS 2.7 NG/ML (<3.6); MB/CK RELATIVE INDEX 2.84 (< OR =4)
[2022-01-12 17:28] LABS: RSV AMPLIFICATION NEGATIVE (NEGATIVE)
[2022-01-12] MEDS ORDERED: HOME MED LIST COMPLETE! XX SCH (18:30)
[2022-01-12] MEDS: ASPIRIN 325 MG TAB PO SCH (19:22)
[2022-01-12] MEDS: CLOPIDOGREL 75 MG TAB PO SCH (19:22)
[2022-01-12] MEDS: bisoproloL fumarate 5 MG TAB PO SCH (19:23)
[2022-01-12 20:30] LABS: CHOLESTEROL RISK RATIO 4.209 (<5)
[2022-01-12] MEDS ORDERED: ATORVASTATIN 20 MG TAB PO SCH (21:00)
[2022-01-12 21:08] LABS: HEMOGLOBIN A1c 6.2 %
[2022-01-12 21:30] VITALS: BP 193/95
[2022-01-12] MEDS: HEPARIN SOD (PORCINE) 5000UNITS/ML 1ML VIAL/SYRINGE SC SCH (21:39)
[2022-01-13] VITALS (9 sets, daily range): BP systolic 145–194; BP diastolic 64–93
[2022-01-13] MEDS ORDERED: OLANZapine INTRAMUSCULAR 10MG VIAL IM ONE (00:30)
[2022-01-13] MEDS ORDERED: HALOPERIDOL 5MG/ML VIAL (J1630 PER 1) IV ONE (03:05)
[2022-01-13] MEDS ORDERED: HALOPERIDOL 5MG/ML VIAL (J1630 PER 1) IM STA (03:08)
[2022-01-13] MEDS: HEPARIN SOD (PORCINE) 5000UNITS/ML 1ML VIAL/SYRINGE SC SCH ×3 (05:26→14:09)
[2022-01-13 06:10] LABS: ALBUMIN 3.3 GM/DL (3.2-5.2); ALT/SGPT 23 U/L (12-78); BILIRUBIN,TOTAL 1.7 MG/DL (0.2-1.0); BLOOD UREA NITROGEN 13 MG/DL (7-18); CALCIUM LEVEL 8.7 MG/DL (8.8-10.2); CARBON DIOXIDE LEVEL 35 MEQ/L (21-32); CHLORIDE LEVEL 107 MEQ/L (98-107); CREATININE FOR GFR 0.95 MG/DL (0.70-1.30); GLOMERULAR FILTRATION RATE > 60.0 (>35); GLUCOSE, FASTING 135 MG/DL (70-100); MAGNESIUM LEVEL 2.2 MG/DL (1.8-2.4); PHOSPHORUS LEVEL 4.3 MG/DL (2.5-4.9); POTASSIUM SERUM 3.3 MEQ/L (3.5-5.1); SODIUM LEVEL 145 MEQ/L (136-145); TOTAL PROTEIN 6.4 GM/DL (6.4-8.2)
[2022-01-13] MEDS ORDERED: KCL 10MEQ/100ML SWI (KRUN) 10 MEQ in IV 1 EA IV ONE (06:45)
[2022-01-13] MEDS: KCL 10MEQ/100ML SWI (KRUN) 10 MEQ in IV 1 EA IV SCH ×3 (07:26→09:25)
[2022-01-13] MEDS ORDERED: hydrALAZINE 20MG/ML 1ML VIAL (J0360 PER 20MG) IV ONE (07:35)
[2022-01-13] MEDS: bisoproloL fumarate 5 MG TAB PO SCH (08:47)
[2022-01-13] MEDS: ASPIRIN 325 MG TAB PO SCH (08:47)
[2022-01-13] MEDS: CLOPIDOGREL 75 MG TAB PO SCH (08:47)
[2022-01-13] MEDS ORDERED: LOSARTAN 25 MG TAB PO SCH ×3 (09:00→21:00)
[2022-01-13] MEDS ORDERED: SPIRONOLACTONE 25 MG TAB PO SCH (09:00)
[2022-01-13] MEDS ORDERED: HALOPERIDOL 5MG/ML VIAL (J1630 PER 1) IM ONE (09:45)
[2022-01-13] MEDS ORDERED: hydrALAZINE 20MG/ML 1ML VIAL (J0360 PER 20MG) IV PRN (10:45)
[2022-01-13] MEDS ORDERED: FUROSEMIDE 40 MG TAB PO SCH (15:00)
[2022-01-13] MEDS ORDERED: ASPI81CH8 PO (15:54)
[2022-01-13] MEDS ORDERED: CLOP75TA2 PO (15:54)
[2022-01-13] MEDS ORDERED: COZA1TAB PO (15:54)
[2022-01-13] MEDS ORDERED: amLODIPine 5 MG TAB PO SCH ×3 (16:00→18:00)
[2022-01-13] MEDS ORDERED: FURO40TA2 PO (16:11)
[2022-01-13] MEDS ORDERED: BISO5TAB14 PO (16:11)
[2022-01-14] MEDS ORDERED: ASPIRIN 81 MG CHEW TABLET PO SCH (09:00)
[2022-01-14] MEDS ORDERED: LOSA25TA13 PO (15:22)
[2022-01-14] MEDS ORDERED: FURO40TA2 PO (15:22)
[2022-01-14] MEDS ORDERED: BISO5TAB14 PO (15:22)
[2022-01-14] MEDS ORDERED: ASPI81CH33 PO (15:22)
[2022-01-14] MEDS ORDERED: PLAV1TAB2 PO (15:22)
== END 2022-01-13 15:56 | disposition left against medical advice (07) | DRG 78 ==
LOC: M ED 13:11 → M ED INP 18:30 → M PCU 21:13
PROVIDERS: ADMIT Internal Medicine; ATTEND Internal Medicine
DX: I67.4 Hypertensive encephalopathy (principal); G91.2 (Idiopathic) normal pressure hydrocephalus; I47.2 Ventricular tachycardia; I10 Essential (primary) hypertension; E78.5 Hyperlipidemia, unspecified; E80.4 Gilbert syndrome; R73.01 Impaired fasting glucose; G62.9 Polyneuropathy, unspecified; Z87.891 Personal history of nicotine dependence; Z85.46 Personal history of malignant neoplasm of prostate; M54.9 Dorsalgia, unspecified; Z79.899 Other long term (current) drug therapy; Z20.822 Contact with and (suspected) exposure to COVID-19; I77.1 Stricture of artery; Z91.19 Patient's noncompliance with other medical treatment and regimen

== ENCOUNTER 2022-01-14 11:30 | Emergency (ER) | payer MEDICARE, OTHER ==
[~2022-01-14] VITALS: Ht 172.7 cm; Wt 91.8 kg
[~2022-01-14 11:30] MED LIST changes: +ASPI81CH8 PO; +ASPIRIN 81 MG CHEW TABLET PO SCH; +CLOP75TA2 PO; +CLOPIDOGREL 75 MG TAB PO SCH; +COZA1TAB PO; +FUROSEMIDE 40 MG TAB PO SCH; +bisoproloL fumarate 5 MG TAB PO SCH
[2022-01-14 12:51] LABS: VENOUS HCO3 31.4 MEQ/L (23.0-27.0); VENOUS O2 SATURATION 86.6 % (60.0-80.0); VENOUS PARTIAL PRESSURE CO2 58.1 mmHg (38.0-50.0); VENOUS PARTIAL PRESSURE O2 54.4 mmHg (30.0-50.0); VENOUS STANDARD HCO3 27.7 MEQ/L; VENOUS TOTAL CO2 33.1 MEQ/L (24.0-28.0)
[2022-01-14 13:00] LABS: HEMATOCRIT 45.1 % (42.0-52.0); HEMOGLOBIN 14.4 g/dl (13.5-17.5); RED BLOOD COUNT 5.13 10^6/uL (4.30-6.10); WHITE BLOOD COUNT 13.5 10^3/uL (4.0-10.0)
[2022-01-14 13:01] LABS: BASO % 0.1 % (0.0-1.0); EOS % 0.1 % (0.0-3.0); LYMPH # 0.7 10^3/uL (1.5-5.0); LYMPH % 4.8 % (24.0-44.0); MEAN CORPUSCULAR HEMOGLOBIN 28.1 pg (27.0-33.0); MEAN CORPUSCULAR HGB CONC 31.9 g/dl (32.0-36.5); MEAN CORPUSCULAR VOLUME 87.9 fl (80.0-96.0); MONO # 0.5 10^3/uL (0.0-0.8); MONO % 3.7 % (2.0-8.0); NEUTROPHILS # 12.2 10^3/uL (1.5-8.5); NEUTROPHILS % 90.8 % (36.0-66.0); PLATELET COUNT, AUTOMATED 158 10^3/uL (150-450)
[2022-01-14 13:32] LABS: CK-MB VALUE MASS 13.8 NG/ML (<3.6); MB/CK RELATIVE INDEX 2.66 (< OR =4)
[2022-01-14 13:48] LABS: ACETAMINOPHEN LEVEL < 2.0 UG/ML (10.0-30.0); ALBUMIN 3.3 GM/DL (3.2-5.2); ALT/SGPT 33 U/L (12-78); BILIRUBIN,DIRECT 0.6 MG/DL (0.0-0.2); BILIRUBIN,TOTAL 3.9 MG/DL (0.2-1.0); BLOOD UREA NITROGEN 17 MG/DL (7-18); CALCIUM LEVEL 8.6 MG/DL (8.8-10.2); CARBON DIOXIDE LEVEL 34 MEQ/L (21-32); CHLORIDE LEVEL 105 MEQ/L (98-107); CREATININE FOR GFR 0.94 MG/DL (0.70-1.30); GLOMERULAR FILTRATION RATE > 60.0 (>35); GLUCOSE, FASTING 152 MG/DL (70-100); NT-PRO BNP 1366 PG/ML (<450); POTASSIUM SERUM 3.2 MEQ/L (3.5-5.1); SALICYLATE LEVEL < 1.7 MG/DL (5.0-30.0); SODIUM LEVEL 144 MEQ/L (136-145); THYROID STIMULATING HORMONE 0.558 uIU/ML (0.358-3.740); TOTAL PROTEIN 6.2 GM/DL (6.4-8.2)
[2022-01-14 14:23] LABS: RSV AMPLIFICATION NEGATIVE (NEGATIVE)
[2022-01-14] MEDS ORDERED: LOSA25TA13 PO (15:22)
[2022-01-14] MEDS ORDERED: PLAV1TAB2 PO (15:22)
[2022-01-14] MEDS ORDERED: ASPI81CH33 PO (15:22)
[2022-01-14] MEDS ORDERED: FURO40TA2 PO (15:22)
[2022-01-14] MEDS ORDERED: BISO5TAB14 PO (15:22)
[2022-01-14] MEDS ORDERED: HOME MED LIST COMPLETE! XX SCH (15:25)
[2022-01-14] MEDS ORDERED: LOSARTAN 25 MG TAB PO SCH (21:00)
[2022-01-14 21:02] VITALS: BP 158/89
[2022-01-14] MEDS ORDERED: ACETAMINOPHEN 325 MG TAB PO ONE (23:20)
[2022-01-15 00:02] VITALS: BP 116/65
== END 2022-01-15 00:21 | disposition other institution (70) ==
LOC: M ED 11:30
DX: I16.1 Hypertensive emergency (principal); R41.0 Disorientation, unspecified; R79.89 Other specified abnormal findings of blood chemistry; I48.91 Unspecified atrial fibrillation; J44.9 Chronic obstructive pulmonary disease, unspecified; R91.8 Other nonspecific abnormal finding of lung field; Z96.89 Presence of other specified functional implants